=== PATIENT | male | born 1960 | race Caucasian/White ===

== ENCOUNTER 2024-05-29 09:42 | Inpatient (IN) | payer OTHER ==
[~2024-05-29] VITALS: Ht 167.6 cm; Wt 66.7 kg
[2024-05-29] MEDS: SODIUM CHLORIDE 0.9% 1,000 ML IV ONE (13:12)
[2024-05-29] MEDS: ASPIRIN 325MG EC TABLET PO ONE (13:12)
[2024-05-29 13:18] LABS: BASOPHILS % 0.6 % (0.0-2.0); EOSINOPHILS % 0.5 % (0.0-5.0); HEMATOCRIT. 46.2 % (42.0-52.0); LYMPHOCYTES % 33.5 % (20.0-50.0); MEAN CORPUSCULAR HEMOGLOBIN 34.2 pg (28.0-32.0); MEAN CORPUSCULAR HGB CONC 34.6 g/dL (31.0-37.0); MEAN CORPUSCULAR VOLUME 98.9 fL (80.0-94.0); MEAN PLATELET VOLUME 8.6 fl (7.4-10.4); MONOCYTES % 5.8 % (2.0-8.0); NEUTROPHILS % 59.6 % (40.0-76.0); PLATELET 186 x1000/uL (130-400); RED BLOOD CELL COUNT 4.67 mill/uL (4.7-6.1); RED CELL DISTRIBUTION WIDTH 14.3 % (11.6-14.6); WHITE BLOOD COUNT 4.6 x1000/uL (4.5-11.0)
[2024-05-29 13:27] LABS: CHLORIDE 103 mEq/L (98-107); POTASSIUM 3.9 mEq/L (3.5-5.1); SODIUM 138 mEq/L (136-145)
[2024-05-29 13:28] LABS: CARBON DIOXIDE 28 mEq/L (21-32)
[2024-05-29 13:29] LABS: CALCIUM 10.1 mg/dL (8.7-10.4)
[2024-05-29 13:33] LABS: CREATININE 0.9 mg/dL (0.6-1.3); GLUCOSE 114 mg/dL (70-105); UREA NITROGEN BLOOD 9 mg/dL (9-23)
[2024-05-29 13:36] LABS: TROPONIN I HIGH SENSITIVITY < 4 ng/L (3.0-53)
[2024-05-29 13:43] LABS: INR 0.9; PROTHROMBIN TIME 10.4 sec (9.6-11.0)
[2024-05-29 14:01] LABS: CLARITY URINE CLOUDY (CLEAR); COLOR URINE YELLOW (YELLOW); GLUCOSE URINE NEGATIVE (NEGATIVE); KETONES URINE NEGATIVE (NEGATIVE); LEUKOCYTE ESTERASE URINE NEGATIVE (NEGATIVE); NITRITE URINE NEGATIVE (NEGATIVE); OCCULT BLOOD URINE NEGATIVE (NEGATIVE); PH URINE 8.5 (4.5-8.0); PROTEIN URINE NEGATIVE (NEGATIVE); SPECIFIC GRAVITY URINE 1.011 (1.005-1.030); UROBILINOGEN URINE 0.2 E.U./dL (0.2-1.0)
[2024-05-29 14:22] LABS: AMORPHOUS SEDIMENT URINE 2+ /lpf
[2024-05-29 14:24] LABS: RBC URINE NONE SEEN /hpf (0-2); WBC URINE NONE SEEN /hpf (0-2)
[2024-05-29 14:25] LABS: BACTERIA URINE NONE SEEN; SQUAMOUS EPITHELIAL CELL URINE RARE /lpf (RARE/1+)
[2024-05-29 15:49] LABS: TROPONIN I HIGH SENSITIVITY < 4 ng/L (3.0-53)
[2024-05-29 18:50] LABS: TROPONIN I HIGH SENSITIVITY < 4 ng/L (3.0-53)
[2024-05-29 23:39] VITALS: BP 137/82; PULSE 70; RESP 19; TEMP 36.61404; O2SAT 98
[2024-05-29 23:40] VITALS: BP 137/82; PULSE 70; RESP 18; TEMP 36.6404
[2024-05-30] MEDS ORDERED: HYDROCODONE/ACETAMINOPHEN 5/325MG TABLET PO PRN (02:15)
[2024-05-30] MEDS ORDERED: CLONIDINE 0.1MG TABLET PO PRN (02:15)
[2024-05-30 04:00] VITALS: BP 138/87; PULSE 63; RESP 18; TEMP 36.55848; O2SAT 99
[2024-05-30] MEDS: SODIUM CHLORIDE 0.9% 1,000 ML IV SCH (04:33)
[2024-05-30 07:40] LABS: HEPATITIS B SURFACE ANTIGEN NEGATIVE (Negative)
[2024-05-30 08:00] VITALS: BP 120/77; PULSE 69; RESP 18; TEMP 36.44736; O2SAT 98
[2024-05-30 08:01] LABS: HEPATITIS C AB NON REACTIVE (Neg) (Negative)
[2024-05-30 10:36] LABS: BASOPHILS % 0.4 % (0.0-2.0); EOSINOPHILS % 1.7 % (0.0-5.0); HEMATOCRIT. 43.8 % (42.0-52.0); HEMOGLOBIN. 14.9 g/dL (14.0-18.0); LYMPHOCYTES % 42.6 % (20.0-50.0); MEAN CORPUSCULAR HEMOGLOBIN 33.7 pg (28.0-32.0); MEAN CORPUSCULAR VOLUME 99.1 fL (80.0-94.0); MEAN PLATELET VOLUME 9.7 fl (7.4-10.4); MONOCYTES % 8.1 % (2.0-8.0); NEUTROPHILS % 47.2 % (40.0-76.0); PLATELET 177 x1000/uL (130-400); RED BLOOD CELL COUNT 4.42 mill/uL (4.7-6.1); RED CELL DISTRIBUTION WIDTH 14.3 % (11.6-14.6); WHITE BLOOD COUNT 5.3 x1000/uL (4.5-11.0)
[2024-05-30 10:43] LABS: CREATINE KINASE MB FRACTION < 0.5 ng/mL (0.5-3.6)
[2024-05-30 10:45] LABS: CREATINE KINASE 57 IU/L (46-171)
[2024-05-30 10:51] LABS: TROPONIN I HIGH SENSITIVITY < 4 ng/L (3.0-53)
[2024-05-30 10:56] LABS: CHLORIDE 107 mEq/L (98-107); POTASSIUM 3.9 mEq/L (3.5-5.1); SODIUM 139 mEq/L (136-145)
[2024-05-30 10:57] LABS: CARBON DIOXIDE 25 mEq/L (21-32)
[2024-05-30 11:02] LABS: CREATININE 0.8 mg/dL (0.6-1.3); GLUCOSE 95 mg/dL (70-105); UREA NITROGEN BLOOD 10 mg/dL (9-23)
[2024-05-30 12:00] VITALS: BP 145/85; PULSE 69; RESP 20; TEMP 36.28068; O2SAT 98
[2024-05-30 16:00] VITALS: BP 120/78; PULSE 76; RESP 19; TEMP 36.33624; O2SAT 98
[2024-05-30 20:00] VITALS: BP 142/84; PULSE 71; RESP 20; TEMP 36.33624; O2SAT 98
[2024-05-30] MEDS: PANTOPRAZOLE 40MG DR TABLET PO SCH (20:42)
[2024-05-30] MEDS ORDERED: LORAZEPAM 1MG TABLET PO PRN (23:00)
[2024-05-30] MEDS: ZOLPIDEM TARTRATE 5MG TABLET PO PRN (23:21)
[2024-05-31] VITALS: BP 133/82; PULSE 72; RESP 18; TEMP 36.3918; O2SAT 98
[2024-05-31 02:52] LABS: CREATINE KINASE MB FRACTION < 0.5 ng/mL (0.5-3.6); TROPONIN I HIGH SENSITIVITY 4 ng/L (3.0-53)
[2024-05-31 02:53] LABS: CREATINE KINASE 70 IU/L (46-171)
[2024-05-31 03:58] VITALS: BP 105/65; PULSE 68; RESP 18; TEMP 37.16964; O2SAT 98
[2024-05-31 08:00] VITALS: BP 128/71; PULSE 67; RESP 18; TEMP 36.22512; O2SAT 98
[2024-05-31] MEDS: CITALOPRAM HYDROBROMIDE 10MG TABLET PO SCH (08:43)
[2024-05-31] MEDS ORDERED: LORA-249 MT (10:26)
[2024-05-31] MEDS ORDERED: CITA10TA16 PO (10:26)
[2024-05-31 12:00] VITALS: BP 141/82; PULSE 67; RESP 18; TEMP 36.3918; TEMP 36.39180; O2SAT 98
[2024-05-31 13:29] VITALS: BP 141/82; PULSE 67; TEMP 97.5; O2SAT 98
== END 2024-05-31 14:00 | disposition home or self-care (01) | DRG 392 ==
LOC: ER 09:42 → 7WST 14:46 → EDBEDREQ 14:59
PROVIDERS: ADMIT Internal Medicine; ATTEND Internal Medicine
DX: K21.9 Gastro-esophageal reflux disease without esophagitis (principal); E78.5 Hyperlipidemia, unspecified; F32.A Depression, unspecified; R07.89 Other chest pain; F41.9 Anxiety disorder, unspecified; I10 Essential (primary) hypertension; Z79.899 Other long term (current) drug therapy
CPT/HCPCS: 36415; 71045; 80048; 81003; 82550; 82553; 84484; 85025; 86705; 87340; 93005; 93306; 99285; J7030